=== PATIENT | female | born 1975 | race American Indian/Alaskan Native ===

== ENCOUNTER 2016-12-28 17:11 | Emergency (ER) | payer OTHER ==
[2016-12-28 17:51] LABS: Basophils % (Auto) 0.8 % (0.0-1.8); Hematocrit 38.4 % (30.3-42.9); Hemoglobin 12.7 gm/dl (10.1-14.3); Mean Corpuscular HGB Conc 33 % (30-34); Mean Corpuscular Hemoglobin 28 pg (28-32); Mean Corpuscular Volume 85 fl (79-97); Platelet Count 312 K/mm3 (140-440); Red Cell Distribution Width 13.8 % (13.2-15.2); White Blood Count 8.2 K/mm3 (4.5-11.0)
[2016-12-28 17:57] LABS: Bilirubin,Urine NEG (Negative); Blood,Urine NEG (Negative); Ketones,Urine NEG (Negative); Leukocyte Esterase,Urine NEG (Negative); Mucus,Urine FEW /HPF; Nitrite,Urine NEG (Negative); Protein,Urine <15 mg/dL mg/dL (Negative)
[2016-12-28 18:31] LABS: Alanine Aminotransferase 10 units/L (7-56); Albumin 4.1 g/dL (3.9-5); Alkaline Phosphatase 52 units/L (35-129); Anion Gap 17 mmol/L; BUN/Creatinine Ratio 11.25; Blood Urea Nitrogen 9 mg/dL (7-17); Calcium 8.8 mg/dL (8.4-10.2); Carbon Dioxide 24 mmol/L (22-30); Chloride 100.4 mmol/L (98-107); Glucose 82 mg/dL (65-100); Lipase 17 units/L (13-60); Sodium 137 mmol/L (137-145); Total Protein 8.1 g/dL (6.3-8.2)
--- NOTE | 2016-12-28 22:16 | Emergency Department Report ---
HPI - General Chief Complaint: Abdominal Pain Time Seen by Provider: 12/28/16 21:59 - HPI HPI: This is a 41-year-old English female presents to the emergency department, driving himself in to be seen, with complaint of some pelvic discomfort and some vaginal discharge. The discomfort has been going on for about 1.5 weeks. It is associated with some nausea without vomiting. She denies any dysuria, vaginal bleeding, back pain but does complain of some subjective fevers. She's been taking ibuprofen for symptoms that are new relief. She denies any past medical or surgical history. She does not have a primary care physician or OB/ INTERNAL CONTROL MANAGER. No recent travel or sick contacts at home. ED Past Medical Hx - Past Medical History Previous Medical History?: No - Surgical History Past Surgical History?: No - Social History Smoking Status: Never Smoker Substance Use Type: None - Medications Home Medications: Home Medications Medication Instructions Recorded Confirmed Last Taken Type HYDROcodone/APAP 5-325 [[place] 1 each PO Q6HR PRN #10 tablet 12/29/16 Unknown Rx 5/325] metroNIDAZOLE [Flagyl] 500 mg PO Q12HR #14 tab 12/29/16 Unknown Rx ED Review of Systems ROS: Stated complaint: MID ABD PAIN Other details as noted in HPI Comment: All other systems reviewed and negative Constitutional: denies: chills, fever Eyes: denies: eye pain, eye discharge, vision change ENT: denies: ear pain, throat pain Respiratory: denies: cough, shortness of breath, wheezing Cardiovascular: denies: chest pain, palpitations Gastrointestinal: nausea. denies: vomiting Genitourinary: discharge. denies: dysuria Musculoskeletal: denies: back pain, joint swelling, arthralgia Skin: denies: rash, lesions Neurological: denies: headache, weakness, paresthesias Physical Exam - Physical Exam Vital Signs: Vital Signs 12/28/16 17:19 Temperature 98.2 F Pulse Rate 91 H Respiratory 16 Rate Blood Pressure 132/85 O2 Sat by Pulse 100 Oximetry Physical Exam: GENERAL: The patient is well-developed well-nourished. HENT: Normocephalic. Atraumatic. Patient has moist mucous membranes. EYES: Extraocular motions are intact. Pupils equal reactive to light bilaterally. NECK: Supple. Trachea is midline. CHEST/LUNGS: Clear to auscultation. There is no respiratory distress noted. HEART/CARDIOVASCULAR: Regular. There is no tachycardia. There is no gallop rub or murmur. ABDOMEN: Abdomen is soft, nontender. Patient has normal bowel sounds. There is no abdominal distention. SKIN: Skin is warm and dry. NEURO: The patient is awake, alert, and oriented. The patient is cooperative. The patient has no focal neurologic deficits. The patient has normal speech. MUSCULOSKELETAL: There is no tenderness or deformity. There is no limitation range of motion. There is no evidence of acute injury. : Pelvic pain is not reproducible to palpation. There is a small amount of malodorous thin white discharge in the vaginal vault. ED Course Vital Signs 12/28/16 17:19 Temperature 98.2 F Pulse Rate 91 H Respiratory 16 Rate Blood Pressure 132/85 O2 Sat by Pulse 100 Oximetry ED Medical Decision Making - Lab Data Result diagrams: 12/28/16 17:36 12/28/16 17:36 - Radiology Data Radiology results: report reviewed PROCEDURE: US TRANSVAGINAL TECHNIQUE: Real-time transvaginal sonography in multiple planes of the pelvis was performed with image documentation. This examination was performed without Doppler. Vascular abnormalities, including ovarian torsion, will not be detectable without Doppler evaluation. CPT 03297 HISTORY: pelvic pain COMPARISON: No prior studies are available for comparison. FINDINGS: UTERUS Size: 7.3 x 4.3 x 4.5 cm. Endometrial thickness: 11 mm. Orientation: anteverted. Cervix: Normal. Fibroids/masses: There are 3 Iso to hypoechoic lesions involving the uterus largest measuring 3.2 centimeters in diameter.. RIGHT Ovary: 2.5 x 2.1 x 1.9 cm. Appearance: Normal. LEFT Ovary: 4.2 x 3.4 x 4.4 cm. Appearance: A complex mixed echoic lesion measuring 3.1 centimeters is noted in the left ovary.. Pelvic fluid: None. Other: None. IMPRESSION: Multiple focal lesions of the uterus are consistent with fibroids largest measuring 3.2 centimeters. Complex cystic lesion involving left ovary measuring about 3.1 centimeters needs further evaluation using follow-up studies to differentiate from a complex follicle versus an ovarian lesion. - Medical Decision Making 41-year-old female presents with 1.5 week history of some pelvic discomfort and some recent vaginal discharge. Labs are mostly unremarkable. Patient is not and there is no urinary tract infection. Ultrasound shows multiple uterine fibroids, left ovarian cysts that need differentiation from a complex cyst versus follicular changes. Wet prep was positive for bacterial vaginosis. Gonorrhea and chlamydia are pending. Vital signs stable throughout her ED course. Patient was discharged home with multiple referrals for [facility] [facility]INEER, primary care, some pain medication and Flagyl. She understands the adverse side effects between Flagyl and alcohol as well as the sedating nature of the pain medication. She will return to the ER with any worsening of her symptoms or any acute distress. - Differential Diagnosis fibroids, , UTI, STD, Critical Care Time: No Critical care attestation.: If time is entered above; I have spent that time in minutes in the direct care of this critically ill patient, excluding procedure time. ED Disposition Clinical Impression: Pelvic pain, Bacterial vaginosis Fibroid Qualifiers: Uterine leiomyoma location: unspecified location Qualified Code(s): D25.9 - Leiomyoma of uterus, unspecified Ovarian cyst Qualifiers: Laterality: left Qualified Code(s): N83.202 - Unspecified ovarian cyst, left side Disposition: DC-01 TO HOME OR SELFCARE Is pt being admited?: No Condition: Stable Instructions: Bacterial Vaginosis (ED), Ovarian Cyst (ED), Uterine Fibroids (ED ), Abdominal Pain (ED) Additional Instructions: Please follow up with a primary care physician. You will also need to follow- up with an PLANT SAFETY ENGINEER regarding her fibroids, ovarian cyst and bacterial vaginosis. Take the antibiotics as prescribed. The antibiotic prescribed for your bacterial vaginosis has the name of Flagyl/metronidazole. This medication has a known adverse side effect to taking it while drinking any alcohol whatsoever. No alcohol should be consumed for up to 2 days after finishing this antibiotic or else she may develop nausea, vomiting and/or abdominal pain. Return to the emergency Department with any worsening of her symptoms or any acute distress. You have been prescribed a medication that is sedating and therefore should not be taken prior to driving, working, and responsible for children and in no way should be mixed with alcohol of any quantity. Prescriptions: HYDROcodone/APAP 5-325 [[place] 5/325] 1 each PO Q6HR PRN #10 tablet PRN Reason: Pain metroNIDAZOLE [Flagyl] 500 mg PO Q12HR #14 tab Referrals: PRIMARY CARE, [Primary Care Provider] - 3-5 Days [facility] [Provider Group] - 3-5 Days [facility] [Provider Group] - 3-5 Days [facility] [Provider Group] - 3-5 Days [facility] [Outside] - 3-5 Days Forms: STI Treatment and Prevention Time of Disposition: 00:17
[2016-12-28 22:45] VITALS: BP 137/78
--- NOTE | 2016-12-28 23:15 | Ultrasound Report ---
FINAL REPORT PROCEDURE: US PELVIS DUPLEX DOPPLER COMP TECHNIQUE: Real-time transabdominal sonography in multiple planes of pelvis was performed with image documentation. This examination was performed without Doppler. Vascular abnormalities, including ovarian torsion, will not be detectable without Doppler evaluation. CPT 67934 HISTORY: pelvic pain COMPARISON: No prior studies are available for comparison. FINDINGS: UTERUS Size: 7.3 x 4.3 x 4.5 cm. Endometrial thickness: 11 mm. Orientation: anteverted. Cervix: Normal. Fibroids/masses: There are 3 Iso to hypoechoic lesions involving the uterus largest measuring 3.2 centimeters in diameter.. RIGHT Ovary: 2.5 x 2.1 x 1.9 cm. Appearance: Normal. LEFT Ovary: 4.2 x 3.4 x 4.4 cm. Appearance: A complex mixed echoic lesion measuring 3.1 centimeters is noted in the left ovary.. Pelvic fluid: None. Other: None. IMPRESSION: Multiple focal lesions of the uterus are consistent with fibroids largest measuring 3.2 centimeters. Complex cystic lesion involving left ovary measuring about 3.1 centimeters needs further evaluation using follow-up studies to differentiate from a complex follicle versus an ovarian lesion.
--- NOTE | 2016-12-28 23:16 | Ultrasound Report ---
FINAL REPORT PROCEDURE: US TRANSVAGINAL TECHNIQUE: Real-time transvaginal sonography in multiple planes of the pelvis was performed with image documentation. This examination was performed without Doppler. Vascular abnormalities, including ovarian torsion, will not be detectable without Doppler evaluation. CPT 03259 HISTORY: pelvic pain COMPARISON: No prior studies are available for comparison. FINDINGS: UTERUS Size: 7.3 x 4.3 x 4.5 cm. Endometrial thickness: 11 mm. Orientation: anteverted. Cervix: Normal. Fibroids/masses: There are 3 Iso to hypoechoic lesions involving the uterus largest measuring 3.2 centimeters in diameter.. RIGHT Ovary: 2.5 x 2.1 x 1.9 cm. Appearance: Normal. LEFT Ovary: 4.2 x 3.4 x 4.4 cm. Appearance: A complex mixed echoic lesion measuring 3.1 centimeters is noted in the left ovary.. Pelvic fluid: None. Other: None. IMPRESSION: Multiple focal lesions of the uterus are consistent with fibroids largest measuring 3.2 centimeters. Complex cystic lesion involving left ovary measuring about 3.1 centimeters needs further evaluation using follow-up studies to differentiate from a complex follicle versus an ovarian lesion.
== END 2016-12-29 00:30 | disposition home or self-care (01) ==
LOC: ED 17:11
DX: N76.0 Acute vaginitis (principal); B96.89 Other specified bacterial agents as the cause of diseases classified elsewhere; D25.9 Leiomyoma of uterus, unspecified; N83.202 Unspecified ovarian cyst, left side; R10.2 Pelvic and perineal pain; Z88.0 Allergy status to penicillin
CPT/HCPCS: 36415; 76830; 80053; 81001; 81025; 83690; 85025; 87210; 87591; 93975